=== PATIENT | female | born 1985 | race Caucasian/White ===

== ENCOUNTER → 2017-09-25 | Outpatient (CLI) | payer MEDICARE, OTHER ==
[2017-09-25 10:17] LABS: T4, Free (Free Thyroxine) 1.69 ng/dL (0.78-2.19)
== END | disposition home or self-care (01) ==
LOC: LABWHC1 08:55
PROVIDERS: ATTEND Internal Medicine Endocrinology, Diabetes & Metabolism
DX: E05.90 Thyrotoxicosis, unspecified without thyrotoxic crisis or storm (principal)
CPT/HCPCS: 36415; 84439; 84443; 84480

== ENCOUNTER 2024-10-12 16:35 | Inpatient (IN) | payer MEDICARE, OTHER ==
[2024-10-12] MEDS: ZIPRASIDONE 20 MG VIAL IM STA (17:08)
--- NOTE | 2024-10-12 17:22 | ED ---
Altered Mental Status HPI - General Chief Complaint: Psychiatric Symptoms Stated Complaint: Mental Health Time Seen by Provider: 10/12/24 16:42 Source: patient, RN notes reviewed, old records reviewed Mode of arrival: EMS Limitations: no limitations - History of Present Illness Initial Comments: This is a 39-year-old female to the ER for evaluation patient presents today for significant altered mental status. Patient is rambling incoherently, flailing about at risk to herself and others. Currently spitting, fighting, monitoring incoherent words MD Complaint: altered mental status -: unknown Severity: severe Consistency of Symptoms: constant Associated Symptoms: denies other symptoms - Related Data Home Medications Medication Instructions Recorded Confirmed Tirzepatide [Zepbound] 7.5 mg SQ FR 10/12/24 10/12/24 methIMAzole 5 mg PO DAILY 10/12/24 10/12/24 methIMAzole 10 mg PO Q48H 10/12/24 10/12/24 Previous Rx's Medication Instructions Recorded Aspirin 81 mg PO DAILY #30 tab 10/16/24 Atorvastatin [Lipitor] 20 mg PO DAILY #30 tablet 10/16/24 Losartan [Cozaar] 25 mg PO DAILY #30 tab 10/16/24 Metoprolol Tartrate [Lopressor] 50 mg PO BID #60 tab 10/16/24 Allergies Allergy/AdvReac Type Severity Reaction Status Date / Time No Known Allergies Allergy Verified 10/12/24 18:52 Review of Systems ROS Statement: Those systems with pertinent positive or pertinent negative responses have been documented in the HPI. ROS Other: All systems not noted in ROS Statement are negative. Past Medical History Past Drug Use History: Marijuana General Exam Limitations: altered mental status, physical limitation General appearance: appears intoxicated, anxious, in distress Head exam: Present: atraumatic, normocephalic, normal inspection Eye exam: Present: normal appearance, PERRL, EOMI. Absent: scleral icterus, conjunctival injection, periorbital swelling ENT exam: Present: normal exam, mucous membranes moist Neck exam: Present: normal inspection. Absent: tenderness, meningismus, lymphadenopathy Respiratory exam: Present: normal lung sounds bilaterally. Absent: respiratory distress, wheezes, rales, rhonchi, stridor Cardiovascular Exam: Present: regular rate, normal rhythm, normal heart sounds. Absent: systolic murmur, diastolic murmur, rubs, gallop, clicks GI/Abdominal exam: Present: soft, normal bowel sounds. Absent: distended, tenderness, guarding, rebound, rigid Extremities exam: Present: normal inspection, full ROM, normal capillary refill. Absent: tenderness, pedal edema, joint swelling, calf tenderness Back exam: Present: normal inspection Neurological exam: Present: alert, oriented X3, CN II-XII intact Psychiatric exam: Present: normal affect, normal mood Skin exam: Present: warm, dry, intact, normal color. Absent: rash Course Vital Signs 10/12/24 10/12/24 10/12/24 16:44 17:10 18:44 Temperature 98.7 F Pulse Rate 130 H Respiratory 26 H 20 18 Rate Blood Pressure 131/78 O2 Sat by Pulse 96 Oximetry 10/12/24 10/13/24 10/13/24 23:38 02:49 05:00 Temperature Pulse Rate 115 H 109 H 109 H Respiratory 17 17 17 Rate Blood Pressure 140/106 147/101 142/98 O2 Sat by Pulse 100 99 99 Oximetry 10/13/24 10/13/24 10/13/24 08:10 10:00 11:00 Temperature 98.7 F Pulse Rate 107 H 99 103 H Respiratory 18 18 18 Rate Blood Pressure 118/76 119/75 136/95 O2 Sat by Pulse 96 97 94 L Oximetry 10/13/24 12:20 Temperature Pulse Rate 103 H Respiratory 16 Rate Blood Pressure 118/81 O2 Sat by Pulse 98 Oximetry - Reevaluation(s) Reevaluation #1: 10/12/24 17:22 Medical records reviewed Reevaluation #2: 10/12/24 22:32 Patient never complains of chest pain throughout ER and stay reevaluation still without chest pain Increasing troponin patient giving aspirin Heart rate continues to improve here in the ER Reevaluation #3: 10/12/24 22:32 Patient informed of results Patient will need psychiatric evaluation Reevaluation #4: Was pt. sent in by a medical professional or institution (, PA, PIE ICER MACHINE, urgent care, hospital, or alf...) When possible be specific @ -no Did you speak to anyone other than the patient for history (EMS, parent, family, police, friend...)? What history was obtained from this source @ -no Did you review nursing and triage notes (agree or disagree)? Why? @ -agree Are old charts reviewed (outside hosp., previous admission, EMS record, old EKG, old radiological studies, urgent care reports/EKG's, alf records)? Report findings @ -yes Differential Diagnosis (chest pain, altered mental status, abdominal pain women, abdominal pain men, vaginal bleeding, weakness, fever, dyspnea, syncope, heada faviola, dizziness, GI bleed, back pain, seizure, CVA, palpatations, mental health, musculoskeletal)? @ -prior EKG interpreted by me (3pts min.). @ -yes X-rays interpreted by me (1pt min.). @ -yes negative for acute disease CT interpreted by me (1pt min.). @ -Yes negative for acute disease U/S interpreted by me (1pt. min.). @ -no What testing was considered but not performed or refused? (CT, X-rays, U/S, labs)? Why? @ -none What meds were considered but not given or refused? Why? @ -none Did you discuss the management of the patient with other professionals (professionals i.e. , PA, PIE ICER MACHINE, lab, RT, psych nurse, social sciences research scientist, sterile products processor, teacher, forest fire control officer, family caseworker)? Give summary @ -no Was smoking cessation discussed for >3mins.? @ -no Was critical care preformed (if so, how long)? @ -no Were there social determinants of health that impacted care today? How? (Homelessness, low income, unemployed, alcoholism, drug addiction, transportation, low edu. Level, literacy, decrease access to med. care, residential, rehab)? @ -none Was there de-escalation of care discussed even if they declined (Discuss DNR or withdrawal of care, Hospice)? DNR status @ -no What co-morbidities impacted this encounter? (DM, HTN, Smoking, COPD, CAD, Cancer, CVA, ARF, Chemo, Hep., AIDS, mental health diagnosis, sleep apnea, morbid obesity)? @ -none Was patient admitted / discharged? Hospital course, mention meds given and route, prescriptions, significant lab abnormalities, going to OR and other pertinent info. @ - 39 female was admitted for psychiatric admission acute psychosis altered mental status need for sedation combativeness, patient also has unknown cause of elevated troponin will have cardiology evaluation Admitted Undiagnosed new problem with uncertain prognosis? @ -no Drug Therapy requiring intensive monitoring for toxicity (Heparin, Nitro, Insulin, Cardizem)? @ -no Were any procedures done? @ -no Diagnosis/symptom? @ -Psychosis Acute, or Chronic, or Acute on Chronic? @ -Acute Uncomplicated (without systemic symptoms) or Complicated (systemic symptoms)? @ -Complicated Side effects of treatment? @ -no Exacerbation, Progression, or Severe Exacerbation? @ -exacerbation Poses a threat to life or bodily function? How? (Chest pain, [place], [place], pneumonia, PE, COPD, DKA, ARF, appy, cholecystitis, CVA, Diverticulitis, Homicidal, Suicidal, threat to staff... and all critical care pts) @ -yes altered mental status acute troponin elevation Reevaluation #5: Differential Altered Mental Status: Hypoglycemia, DKA, hypercapnia, ETOH, overdose, CO poisoning, trauma, myxedema coma, HTN encephalopathy, infection, encephalitis, psychosis, intercranial hemorrhage, hepatic encephalopathy, meningitis, CVA, this is not meant to be an all-inclusive list Differential Mental Health Depression, anxiety, bipolar, psychosis, schizophrenia, borderline personality, situational depression, adjustment disorder, behavioral disorder, brain tumor, malingering, substance abuse, encephalopathy, medication reaction, dementia, hypothyroidism, degenerative neurologic disorder, lupus.... This is not meant to be all-inclusive list - Consultations Consultation #1: Spoke with sound who agrees to admit this patient Medical Decision Making - Medical Decision Making 39 female was admitted for psychiatric admission acute psychosis altered mental status need for sedation combativeness, patient also has unknown cause of elevated troponin will have cardiology evaluation - Lab Data Result diagrams: 10/16/24 08:42 10/16/24 08:42 Lab Results 10/12/24 10/12/24 10/12/24 Range/Units 18:17 18:17 18:17 WBC 14.6 H (3.8-10.6) k/uL RBC 4.53 (3.80-5.40) m/uL Hgb 12.1 (11.4-16.0) gm/dL Hct 37.5 (34.0-46.0) % MCV 82.8 (80.0-100.0) fL MCH 26.7 (25.0-35.0) pg MCHC 32.2 (31.0-37.0) g/dL RDW 15.1 (11.5-15.5) % Plt Count 380 (150-450) k/uL MPV 7.0 Neutrophils % 91 % Lymphocytes % 6 % Monocytes % 3 % Eosinophils % 0 % Basophils % 0 % Neutrophils # 13.3 H (1.3-7.7) k/uL Lymphocytes # 0.8 L (1.0-4.8) k/uL Monocytes # 0.4 (0-1.0) k/uL Eosinophils # 0.0 (0-0.7) k/uL Basophils # 0.0 (0-0.2) k/uL PT 11.3 (10.0-12.5) sec INR 1.0 (<1.2) Sodium 137 (137-145) mmol/L Potassium 3.4 L (3.5-5.1) mmol/L Chloride 102 (98-107) mmol/L Carbon Dioxide 21 L (22-30) mmol/L Anion Gap 14 mmol/L BUN 9 (7-17) mg/dL Creatinine 0.80 (0.52-1.04) mg/dL Est GFR (CKD-EPI)AfAm >90 (>60 ml/min/1.73 sqM) Est GFR (CKD-EPI)NonAf >90 (>60 ml/min/1.73 sqM) Glucose 105 H (74-99) mg/dL Lactic Ac Sepsis Rflx Plasma Lactic Acid Adalid (0.7-2.0) mmol/L Calcium 9.1 (8.4-10.2) mg/dL Phosphorus 2.8 (2.5-4.5) mg/dL Magnesium 2.1 (1.6-2.3) mg/dL Total Bilirubin 0.3 (0.2-1.3) mg/dL AST 27 (14-36) U/L ALT 25 (4-34) U/L Alkaline Phosphatase 52 (38-126) U/L Creatine Kinase 247 H (30-135) U/L Troponin I (0.000-0.034) ng/mL Total Protein 7.5 (6.3-8.2) g/dL Albumin 4.0 (3.5-5.0) g/dL Lipase 63 (23-300) U/L TSH 0.020 L (0.465-4.680) mIU/L Free T4 1.17 (0.78-2.19) ng/dL Salicylates <1.0 mg/dL Urine Opiates Screen (NotDetected) Ur Oxycodone Screen (NotDetected) Urine Methadone Screen (NotDetected) Acetaminophen <10.0 ug/mL Ur Barbiturates Screen (NotDetected) U Tricyclic Antidepress (NotDetected) Ur Phencyclidine Scrn (NotDetected) Ur Amphetamines Screen (NotDetected) U Methamphetamines Scrn (NotDetected) U Benzodiazepines Scrn (NotDetected) [place] <0.2 mmol/L Urine Cocaine Screen (NotDetected) U Marijuana (THC) Screen (NotDetected) Serum Alcohol <10 mg/dL 10/12/24 10/12/24 10/12/24 Range/Units 18:17 18:24 18:54 WBC (3.8-10.6) k/uL RBC (3.80-5.40) m/uL Hgb (11.4-16.0) gm/dL Hct (34.0-46.0) % MCV (80.0-100.0) fL MCH (25.0-35.0) pg MCHC (31.0-37.0) g/dL RDW (11.5-15.5) % Plt Count (150-450) k/uL MPV Neutrophils % % Lymphocytes % % Monocytes % % Eosinophils % % Basophils % % Neutrophils # (1.3-7.7) k/uL Lymphocytes # (1.0-4.8) k/uL Monocytes # (0-1.0) k/uL Eosinophils # (0-0.7) k/uL Basophils # (0-0.2) k/uL PT (10.0-12.5) sec INR (<1.2) Sodium (137-145) mmol/L Potassium (3.5-5.1) mmol/L Chloride (98-107) mmol/L Carbon Dioxide (22-30) mmol/L Anion Gap mmol/L BUN (7-17) mg/dL Creatinine (0.52-1.04) mg/dL Est GFR (CKD-EPI)AfAm (>60 ml/min/1.73 sqM) Est GFR (CKD-EPI)NonAf (>60 ml/min/1.73 sqM) Glucose (74-99) mg/dL Lactic Ac Sepsis Rflx Y Plasma Lactic Acid Adalid 4.3 H* (0.7-2.0) mmol/L Calcium (8.4-10.2) mg/dL Phosphorus (2.5-4.5) mg/dL Magnesium (1.6-2.3) mg/dL Total Bilirubin (0.2-1.3) mg/dL AST (14-36) U/L ALT (4-34) U/L Alkaline Phosphatase (38-126) U/L Creatine Kinase (30-135) U/L Troponin I 0.267 H* (0.000-0.034) ng/mL Total Protein (6.3-8.2) g/dL Albumin (3.5-5.0) g/dL Lipase (23-300) U/L TSH (0.465-4.680) mIU/L Free T4 (0.78-2.19) ng/dL Salicylates mg/dL Urine Opiates Screen (NotDetected) Ur Oxycodone Screen (NotDetected) Urine Methadone Screen (NotDetected) Acetaminophen ug/mL Ur Barbiturates Screen (NotDetected) U Tricyclic Antidepress (NotDetected) Ur Phencyclidine Scrn (NotDetected) Ur Amphetamines Screen (NotDetected) U Methamphetamines Scrn (NotDetected) U Benzodiazepines Scrn (NotDetected) [place] mmol/L Urine Cocaine Screen (NotDetected) U Marijuana (THC) Screen (NotDetected) Serum Alcohol mg/dL 10/12/24 Range/Units 19:37 WBC (3.8-10.6) k/uL RBC (3.80-5.40) m/uL Hgb (11.4-16.0) gm/dL Hct (34.0-46.0) % MCV (80.0-100.0) fL MCH (25.0-35.0) pg MCHC (31.0-37.0) g/dL RDW (11.5-15.5) % Plt Count (150-450) k/uL MPV Neutrophils % % Lymphocytes % % Monocytes % % Eosinophils % % Basophils % % Neutrophils # (1.3-7.7) k/uL Lymphocytes # (1.0-4.8) k/uL Monocytes # (0-1.0) k/uL Eosinophils # (0-0.7) k/uL Basophils # (0-0.2) k/uL PT (10.0-12.5) sec INR (<1.2) Sodium (137-145) mmol/L Potassium (3.5-5.1) mmol/L Chloride (98-107) mmol/L Carbon Dioxide (22-30) mmol/L Anion Gap mmol/L BUN (7-17) mg/dL Creatinine (0.52-1.04) mg/dL Est GFR (CKD-EPI)AfAm (>60 ml/min/1.73 sqM) Est GFR (CKD-EPI)NonAf (>60 ml/min/1.73 sqM) Glucose (74-99) mg/dL Lactic Ac Sepsis Rflx Plasma Lactic Acid Adalid (0.7-2.0) mmol/L Calcium (8.4-10.2) mg/dL Phosphorus (2.5-4.5) mg/dL Magnesium (1.6-2.3) mg/dL Total Bilirubin (0.2-1.3) mg/dL AST (14-36) U/L ALT (4-34) U/L Alkaline Phosphatase (38-126) U/L Creatine Kinase (30-135) U/L Troponin I (0.000-0.034) ng/mL Total Protein (6.3-8.2) g/dL Albumin (3.5-5.0) g/dL Lipase (23-300) U/L TSH (0.465-4.680) mIU/L Free T4 (0.78-2.19) ng/dL Salicylates mg/dL Urine Opiates Screen Not Detected (NotDetected) Ur Oxycodone Screen Not Detected (NotDetected) Urine Methadone Screen Not Detected (NotDetected) Acetaminophen ug/mL Ur Barbiturates Screen Not Detected (NotDetected) U Tricyclic Antidepress Not Detected (NotDetected) Ur Phencyclidine Scrn Not Detected (NotDetected) Ur Amphetamines Screen Not Detected (NotDetected) U Methamphetamines Scrn Not Detected (NotDetected) U Benzodiazepines Scrn Not Detected (NotDetected) [place] mmol/L Urine Cocaine Screen Not Detected (NotDetected) U Marijuana (THC) Screen Detected H (NotDetected) Serum Alcohol mg/dL - EKG Data -: EKG Interpreted by Me (EKG is sinus tachycardia 112 WI 152 QRS 87 QTc 400) - Radiology Data Radiology results: report reviewed (CT brain and chest x-ray is negative for acute disease), image reviewed Disposition Clinical Impression: Acute anxiety, Psychosis, Acute psychosis, AMS (altered mental status), Elevated troponin, Lactic acidosis Disposition: ADMITTED IP TO THIS HOSP Condition: Fair Is patient prescribed a controlled substance at d/c from ED?: No Time of Disposition: 20:20
[2024-10-12] MEDS: HALOPERIDOL LACTATE 5 MG/ML 1 ML VIAL IM STA (17:58)
[2024-10-12] MEDS: diphenhydrAMINE 50 MG/ML 1 ML VIAL IVP STA (18:25)
[2024-10-12] MEDS: SODIUM CHLORIDE 0.9% 1,000 ML IV STA (18:25)
[2024-10-12 18:26] LABS: Basophils % (A) 0 %; Eosinophils % (A) 0 %; HCT 37.5 % (34.0-46.0); HGB 12.1 gm/dL (11.4-16.0); Lymphocytes # (A) 0.8 k/uL (1.0-4.8); Lymphocytes % (A) 6 %; MCH 26.7 pg (25.0-35.0); MCHC 32.2 g/dL (31.0-37.0); MCV 82.8 fL (80.0-100.0); Monocytes # (A) 0.4 k/uL (0-1.0); Monocytes % (A) 3 %; Neutrophils # (A) 13.3 k/uL (1.3-7.7); Neutrophils % (A) 91 %; Platelet Count 380 k/uL (150-450); RBC 4.53 m/uL (3.80-5.40); RDW 15.1 % (11.5-15.5); WBC 14.6 k/uL (3.8-10.6)
[2024-10-12] MEDS: LORazepam 2 MG/ML INJ IV STA (18:26)
[2024-10-12 18:37] LABS: AST 27 U/L (14-36); Acetaminophen <10.0 ug/mL; African American GFR (CKD) >90 (>60 ml/min/1.73 sqM); Alcohol <10 mg/dL; Alkaline Phosphatase 52 U/L (38-126); Anion Gap 14 mmol/L; Blood Urea Nitrogen 9 mg/dL (7-17); Calcium 9.1 mg/dL (8.4-10.2); Carbon Dioxide 21 mmol/L (22-30); Chloride 102 mmol/L (98-107); Creatine Kinase 247 U/L (30-135); Glucose 105 mg/dL (74-99); Lipase 63 U/L (23-300); Lithium <0.2 mmol/L; Magnesium 2.1 mg/dL (1.6-2.3); Non-African American GFR(CKD) >90 (>60 ml/min/1.73 sqM); Phosphorus 2.8 mg/dL (2.5-4.5); Potassium 3.4 mmol/L (3.5-5.1); Salicylate <1.0 mg/dL; Sodium 137 mmol/L (137-145); Total Bilirubin 0.3 mg/dL (0.2-1.3); Total Protein 7.5 g/dL (6.3-8.2)
[2024-10-12 18:38] LABS: Prothrombin Time 11.3 sec (10.0-12.5)
[2024-10-12 18:53] LABS: ALT 25 U/L (4-34)
[2024-10-12] MEDS: SODIUM CHLORIDE 0.9% 1,000 ML IV SCH (19:28)
[2024-10-12 19:49] LABS: T4, Free (Free Thyroxine) 1.17 ng/dL (0.78-2.19)
--- NOTE | 2024-10-12 19:56 | XR ---
EXAMINATION TYPE: XR chest 1V DATE OF EXAM: 10/12/2024 7:53 PM COMPARISON: None. CLINICAL INDICATION: Female, 39 years old with history of ams, TECHNIQUE: Single frontal view of the chest is obtained. FINDINGS: There is no focal air space opacity, pleural effusion, or pneumothorax seen. The cardiac silhouette size is within normal limits. The osseous structures are intact. IMPRESSION: No acute process. [facility], , 10/12/2024 7:54 PM
--- NOTE | 2024-10-12 20:11 | CT ---
EXAMINATION TYPE: CT brain cspine wo con DATE OF EXAM: 10/12/2024 COMPARISON: None CLINICAL INDICATION: Female, 39 years old with history of ams; PHH, ams TECHNIQUE: CT scan of the head and cervical spine are performed without contrast. CT DLP: 2073.[address] CTDI: mGy Automated exposure control for dose reduction was used. FINDINGS: There is no acute intracranial hemorrhage, mass effect, or midline shift identified. The ventricles and sulci are within normal limits in size. The globes are intact and the visualized sinuses are jose ar. Cervical spine is visualized in its entirety from C1 through upper thoracic levels and demonstrates s atisfactory alignment without evidence of acute fracture or dislocation. Prevertebral soft tissue ap pears within normal limits. The C1-C2 articulation is unremarkable. IMPRESSION: 1. There is no acute fracture or dislocation evident in the cervical spine. 2. No acute intracranial hemorrhage, mass effect, or midline shift is seen. [facility], , 10/12/2024 8:09 PM
[2024-10-12] MEDS ORDERED: NALOXONE 0.4 MG/ML 1 ML VIAL IV PRN (20:15)
[2024-10-12] MEDS ORDERED: MORPHINE SULFATE 4 MG/ML SYRINGE IV PRN (20:15)
[2024-10-12 20:32] LABS: Amphetamine Screen,Urine Not Detected (NotDetected); Barbiturate Screen,Urine Not Detected (NotDetected); Benzodiazepines Screen,Urine Not Detected (NotDetected); Cocaine Screen,Urine Not Detected (NotDetected); Methadone Screen, Urine Not Detected (NotDetected); Opiate Screen,Urine Not Detected (NotDetected); Oxycodone Screen, Urine Not Detected (NotDetected); Phencyclidine Screen,Urine Not Detected (NotDetected); Tricyclic Antidepressant,Urine Not Detected (NotDetected); Urn Cannabinoid Scrn Detected (NotDetected)
[2024-10-12] MEDS: ASPIRIN 81 MG PO STA (22:09)
[2024-10-12] MEDS: ASPIRIN 300 MG SUPP RECTAL STA (22:10)
[2024-10-13] MEDS: HEPARIN SOD,PORK IN 0.45% NACL 25,000 UNIT in 0.45% NACL 1 250ML.BAG IV SCH (00:41)
[2024-10-13] MEDS: HEPARIN SODIUM 1,000 UN/ML (10ML VL) IV ONE (00:42)
[2024-10-13 01:19] LABS: INR 1.1 (<1.2); Partial Thromboplastin Time 54.5 sec (22.0-30.0); Prothrombin Time 11.6 sec (10.0-12.5)
[2024-10-13 01:25] LABS: Basophils % (A) 0 %; Eosinophils % (A) 0 %; HCT 36.8 % (34.0-46.0); HGB 11.7 gm/dL (11.4-16.0); Lymphocytes # (A) 1.8 k/uL (1.0-4.8); Lymphocytes % (A) 14 %; MCH 27.2 pg (25.0-35.0); MCHC 31.9 g/dL (31.0-37.0); MCV 85.2 fL (80.0-100.0); Mean Platelet Volume 7.3; Monocytes # (A) 0.5 k/uL (0-1.0); Monocytes % (A) 4 %; Neutrophils # (A) 9.9 k/uL (1.3-7.7); Neutrophils % (A) 81 %; Platelet Count 357 k/uL (150-450); RBC 4.31 m/uL (3.80-5.40); RDW 15.3 % (11.5-15.5); WBC 12.3 k/uL (3.8-10.6)
[2024-10-13] MEDS: ONDANSETRON 4 MG/2 ML VIAL IVP PRN (04:09)
--- NOTE | 2024-10-13 05:54 | P.HPIM ---
History of Present Illness H&P Date: 10/13/24 Patient is a 39-year-old female who was brought into the emergency room for erratic behavior. The patient had reportedly taken THC edibles and was acting very aggressively and erratically at all staff. She was subsequently seen in the emergency room and reported feeling better from the time of arrival. She reports that she may have gotten a substance laced with something from a friend which were THC edibles. She did reported ongoing nausea at the time of interview and had an episode of vomiting but denied any additional complaints. She denied experiencing chest discomfort, shortness breath, fever, chills, cough, abdominal pain, diarrhea. Head/cervical spine CT in the emergency room was unremarkable. EKG revealed sinus tachycardia at [address]/T wave changes noted as reviewed by me. Chest x-ray was unremarkable. Laboratory evaluation revealed a troponin of 0.267 -> 0.567 -> 0.740, with WBC count 12.3 and urine toxicology positive for marijuana. Lactic acid was 4.3 and potassium 3.4. ED documentation reviewed and case discussed with ED provider. Review of systems: Pertinent positives and negatives as discussed in HPI, a complete review of systems was performed and all other systems are negative. Physical examination: Vital signs reviewed General: non toxic, no distress, appears at stated age, morbidly obese Derm: no unusual rashes/lesions, warm Head: atraumatic, normocephalic, symmetric Eyes: EOMI, no lid lag, anicteric sclera, pupils equal round reactive to light ENT: Nose and ears atraumatic Neck: No cervical lymphadenopathy, trachea midline, supple Mouth: no lip lesion, mucus membranes moist Cardiovascular: S1S2 reg, no murmur, positive dorsalis pedis pulse bilateral, no edema Lungs: CTA bilateral, no rhonchi, no rales, no accessory muscle use Abdominal: soft, nontender to palpation, no guarding Ext: muscle strength 5 out of 5 in all 4 extremities grossly, no gross muscle atrophy, no contractures, Neuro: CN II-XI grossly intact, no gross focal neuro deficits Psych: Alert, oriented, appropriate affect Assessment: Elevated troponin, rule out NSTEMI Erratic behavior, now resolved, likely due to substance abuse Lactic acidosis Hypokalemia Leukocytosis, likely secondary to acute stressor with no signs of active infection at this time Imaging: Head/cervical spine CT in the emergency room was unremarkable. EKG revealed sinus tachycardia at [address]/T wave changes noted as reviewed by me. Chest x-ray was unremarkable. Data Review: Laboratory evaluation revealed a troponin of 0.267 -> 0.567 -> 0.740, with WBC count 12.3 and urine toxicology positive for marijuana. Lactic acid was 4.3 and potassium 3.4. Plan: Initiated heparin infusion Continue with aspirin Cardiology consulted Trend troponin Cardiac monitoring Monitor lactic acid levels for resolution Replace potassium DVT prophylaxis: Heparin infusion The patient is admitted with an anticipated less than 2 midnight stay for evaluation of elevated troponin CODE STATUS: Full Code Discussed with: Patient Anticipated discharge place: Home Past Medical History Past Drug Use History: Marijuana Medications and Allergies Home Medications Medication Instructions Recorded Confirmed Type Tirzepatide [Zepbound] 7.5 mg SQ FR 10/12/24 10/12/24 History methIMAzole 5 mg PO DAILY 10/12/24 10/12/24 History methIMAzole 10 mg PO Q48H 10/12/24 10/12/24 History Allergies Allergy/AdvReac Type Severity Reaction Status Date / Time No Known Allergies Allergy Verified 10/12/24 18:52 Physical Exam Vitals: Vital Signs Temp Pulse Resp BP Pulse Ox 10/13/24 02:49 109 H 17 147/101 99 10/12/24 23:38 115 H 17 140/106 100 10/12/24 18:44 98.7 F 130 H 18 131/78 96 10/12/24 17:10 20 10/12/24 16:44 26 H Intake and Output 10/12/24 10/12/24 10/13/24 14:59 22:59 06:59 Other: Weight 124.738 kg Results CBC & Chem 7: 10/13/24 00:47 10/12/24 18:17 Labs: Abnormal Lab Results - Last 24 Hours (Table) 10/12/24 10/12/24 10/12/24 Range/Units 18:17 18:17 18:17 WBC 14.6 H (3.8-10.6) k/uL Neutrophils # 13.3 H (1.3-7.7) k/uL Lymphocytes # 0.8 L (1.0-4.8) k/uL APTT (22.0-30.0) sec Potassium 3.4 L (3.5-5.1) mmol/L Carbon Dioxide 21 L (22-30) mmol/L Glucose 105 H (74-99) mg/dL Plasma Lactic Acid Adalid (0.7-2.0) mmol/L Creatine Kinase 247 H (30-135) U/L Troponin I 0.267 H* (0.000-0.034) ng/mL TSH 0.020 L (0.465-4.680) mIU/L U Marijuana (THC) Screen (NotDetected) 10/12/24 10/12/24 10/12/24 Range/Units 18:24 19:37 21:05 WBC (3.8-10.6) k/uL Neutrophils # (1.3-7.7) k/uL Lymphocytes # (1.0-4.8) k/uL APTT (22.0-30.0) sec Potassium (3.5-5.1) mmol/L Carbon Dioxide (22-30) mmol/L Glucose (74-99) mg/dL Plasma Lactic Acid Adalid 4.3 H* (0.7-2.0) mmol/L Creatine Kinase (30-135) U/L Troponin I 0.567 H* (0.000-0.034) ng/mL TSH (0.465-4.680) mIU/L U Marijuana (THC) Screen Detected H (NotDetected) 10/12/24 10/13/24 10/13/24 Range/Units 21:05 00:24 00:47 WBC 12.3 H (3.8-10.6) k/uL Neutrophils # 9.9 H (1.3-7.7) k/uL Lymphocytes # (1.0-4.8) k/uL APTT (22.0-30.0) sec Potassium (3.5-5.1) mmol/L Carbon Dioxide (22-30) mmol/L Glucose (74-99) mg/dL Plasma Lactic Acid Adalid 2.1 H* (0.7-2.0) mmol/L Creatine Kinase (30-135) U/L Troponin I 0.740 H* (0.000-0.034) ng/mL TSH (0.465-4.680) mIU/L U Marijuana (THC) Screen (NotDetected) 10/13/24 Range/Units 00:47 WBC (3.8-10.6) k/uL Neutrophils # (1.3-7.7) k/uL Lymphocytes # (1.0-4.8) k/uL APTT 54.5 H (22.0-30.0) sec Potassium (3.5-5.1) mmol/L Carbon Dioxide (22-30) mmol/L Glucose (74-99) mg/dL Plasma Lactic Acid Adalid (0.7-2.0) mmol/L Creatine Kinase (30-135) U/L Troponin I (0.000-0.034) ng/mL TSH (0.465-4.680) mIU/L U Marijuana (THC) Screen (NotDetected)
[2024-10-13 07:43] LABS: Basophils % (A) 0 %; Eosinophils % (A) 0 %; HCT 39.8 % (34.0-46.0); HGB 12.8 gm/dL (11.4-16.0); Lymphocytes # (A) 0.8 k/uL (1.0-4.8); Lymphocytes % (A) 5 %; MCH 26.9 pg (25.0-35.0); MCHC 32.2 g/dL (31.0-37.0); MCV 83.4 fL (80.0-100.0); Mean Platelet Volume 7.2; Monocytes # (A) 0.5 k/uL (0-1.0); Monocytes % (A) 3 %; Neutrophils # (A) 13.3 k/uL (1.3-7.7); Neutrophils % (A) 91 %; Platelet Count 406 k/uL (150-450); RBC 4.77 m/uL (3.80-5.40); RDW 15.3 % (11.5-15.5); WBC 14.6 k/uL (3.8-10.6)
[2024-10-13 07:57] LABS: ALT 17 U/L (4-34); AST 30 U/L (14-36); African American GFR (CKD) >90 (>60 ml/min/1.73 sqM); Albumin 3.5 g/dL (3.5-5.0); Alkaline Phosphatase 56 U/L (38-126); Anion Gap 9 mmol/L; Blood Urea Nitrogen 7 mg/dL (7-17); Calcium 8.5 mg/dL (8.4-10.2); Carbon Dioxide 20 mmol/L (22-30); Chloride 111 mmol/L (98-107); Glucose 118 mg/dL (74-99); Magnesium 2.1 mg/dL (1.6-2.3); Non-African American GFR(CKD) >90 (>60 ml/min/1.73 sqM); Phosphorus 3.1 mg/dL (2.5-4.5); Potassium 3.7 mmol/L (3.5-5.1); Sodium 140 mmol/L (137-145); Total Bilirubin 0.4 mg/dL (0.2-1.3)
[2024-10-13] MEDS: HEPARIN SODIUM 1,000 UN/ML (10ML VL) IV PRN (08:16)
[2024-10-13] MEDS: PANTOPRAZOLE 40 MG/10 ML VIAL IV SCH (08:40)
--- NOTE | 2024-10-13 09:18 | P.CRDCN ---
History of Present Illness Consult date: 10/13/24 History of present illness: The patient is a pleasant 39-year-old female patient with a past medical history significant for thyroid disease and obesity and also history of marijuana use presented to the emergency department or was brought to the emergency department for erratic behavior. For some reasons troponin was checked and came to be abnormal and seems to be concerning and for that reason we consulted to see the patient. The EKG showed sinus mechanism with sinus tachycardia and no ischemic ST or T wave abnormalities. No symptoms of chest pain or chest discomfort but the patient somewhat is poor historian. No history of CAD or heart failure or cardiac arrhythmia. She is overweight. She was found to have mildly elevated lactic acid. Her WBC also was slightly elevated. She used marijuana yesterday. No other drugs according to her have been used. The physical examination is remarkable for regular rhythm with a clear breathing sounds bilaterally and no edema was noted in the lower extremities Assessment Evidence of myocardial injury with no evidence of ischemia as of now History of marijuana use Mild sinus tachycardia Obesity Plan Continue the heparin for a total of 48 hours Add aspirin to the current medical regimen Add beta-sean with metoprolol to tartrate Follow-up with the next third cardiac enzymes Obtain an echo for more risk stratification and rule out wall motion abnormalities Further recommendation to follow Past Medical History Past Drug Use History: Marijuana Medications and Allergies Home Medications Medication Instructions Recorded Confirmed Type Tirzepatide [Zepbound] 7.5 mg SQ FR 10/12/24 10/12/24 History methIMAzole 5 mg PO DAILY 10/12/24 10/12/24 History methIMAzole 10 mg PO Q48H 10/12/24 10/12/24 History Allergies Allergy/AdvReac Type Severity Reaction Status Date / Time No Known Allergies Allergy Verified 10/12/24 18:52 Physical Exam Vitals: Vital Signs Temp Pulse Resp BP Pulse Ox 10/13/24 08:10 107 H 18 118/76 96 10/13/24 05:00 109 H 17 142/98 99 10/13/24 02:49 109 H 17 147/101 99 10/12/24 23:38 115 H 17 140/106 100 10/12/24 18:44 98.7 F 130 H 18 131/78 96 10/12/24 17:10 20 10/12/24 16:44 26 H Intake and Output 03/10/13/24 10/13/24 22:59 06:59 14:59 Intake Total 75.667 Balance 75.667 Intake: Intake, IV Titration 75.667 Amount Heparin Sod,Pork in 0.45% 75.667 NaCl 25,000 unit In 0.45 % NaCl 1 250ml.bag @ 8. 017 UNITS/KG/HR 10 mls/hr IV .Q24H [facility] Rx#: [id number] Other: Weight 124.738 kg Results 10/13/24 07:10 10/13/24 07:10 Cardiac Enzymes 10/12/24 10/12/24 10/12/24 Range/Units 18:17 18:17 21:05 AST 27 (14-36) U/L Troponin I 0.267 H* 0.567 H* (0.000-0.034) ng/mL 10/13/24 10/13/24 Range/Units 00:24 07:10 AST 30 (14-36) U/L Troponin I 0.740 H* (0.000-0.034) ng/mL Coagulation 10/12/24 10/13/24 10/13/24 Range/Units 18:17 00:47 07:10 PT 11.3 11.6 (10.0-12.5) sec APTT 54.5 H 31.8 H (22.0-30.0) sec CBC 10/12/24 10/13/24 10/13/24 Range/Units 18:17 00:47 07:10 WBC 14.6 H 12.3 H 14.6 H (3.8-10.6) k/uL RBC 4.53 4.31 4.77 (3.80-5.40) m/uL Hgb 12.1 11.7 12.8 (11.4-16.0) gm/dL Hct 37.5 36.8 39.8 (34.0-46.0) % Plt Count 380 357 406 (150-450) k/uL Comprehensive Metabolic Panel 10/12/24 10/13/24 Range/Units 18:17 07:10 Sodium 137 140 (137-145) mmol/L Potassium 3.4 L 3.7 (3.5-5.1) mmol/L Chloride 102 111 H (98-107) mmol/L Carbon Dioxide 21 L 20 L (22-30) mmol/L BUN 9 7 (7-17) mg/dL Creatinine 0.80 0.56 (0.52-1.04) mg/dL Glucose 105 H 118 H (74-99) mg/dL Calcium 9.1 8.5 (8.4-10.2) mg/dL AST 27 30 (14-36) U/L ALT 25 17 (4-34) U/L Alkaline Phosphatase 52 56 (38-126) U/L Total Protein 7.5 7.0 (6.3-8.2) g/dL Albumin 4.0 3.5 (3.5-5.0) g/dL Current Medications Generic Name Dose Route Start Last Admin Trade Name Freq PRN Reason Stop Dose Admin Heparin Sodium (Porcine) 0 unit 10/13/24 00:31 10/13/24 08:16 Heparin Sodium 1,000 Un/Ml (10ml Vl) IV 3,118.45 unit PER PROTOCOL PRN Administration Low PTT Protocol Heparin Sodium/Sodium Chloride 250 mls @ 10 mls/hr 10/13/24 00:45 10/13/24 08:15 25,000 unit/ Sodium Chloride IV 10.017 units/kg/hr .Q24H XI 12.495 mls/hr Titration Protocol 8.017 UNITS/KG/HR Morphine Sulfate 4 mg 10/12/24 20:15 Morphine Sulfate 4 Mg/Ml Syringe IV Q4HR PRN Severe Pain (Scale 7 to 10) Naloxone HCl 0.2 mg 10/12/24 20:15 Naloxone 0.4 Mg/Ml 1 Ml Vial IV Q2M PRN Opioid Reversal Ondansetron HCl 4 mg 10/12/24 20:15 10/13/24 04:09 Ondansetron 4 Mg/2 Ml Vial IVP 4 mg Q8HR PRN Administration Nausea And Vomiting Pantoprazole Sodium 40 mg 10/13/24 09:00 10/13/24 08:40 Pantoprazole 40 Mg/10 Ml Vial IV 40 mg DAILY XI Administration Intake and Output 10/12/24 10/13/24 10/13/24 22:59 06:59 14:59 Intake Total 75.667 Balance 75.667 Intake: Intake, IV Titration 75.667 Amount Heparin Sod,Pork in 0.45% 75.667 NaCl 25,000 unit In 0.45 % NaCl 1 250ml.bag @ 8. 017 UNITS/KG/HR 10 mls/hr IV .Q24H [facility], [facility] Rx#: [id number] Other: Weight 124.738 kg 10/13/24 07:10 10/13/24 07:10
--- NOTE | 2024-10-13 11:18 | XR ---
EXAMINATION TYPE: XR chest 2V DATE OF EXAM: 10/13/2024 10:54 AM COMPARISON: Chest radiographs from 10/12/2024. CLINICAL INDICATION: Female, 39 years old with history of elevated trop; [facility] TECHNIQUE: XR chest 2V Frontal and lateral views of the chest. FINDINGS: Lungs/Pleura: There is no evidence of pleural effusion, focal consolidation, or pneumothorax. Pulmonary vascularity: Pulmonary vascular congestion. Heart/mediastinum: Cardiac size is normal. Musculoskeletal: No acute osseous pathology. Other findings: Non IMPRESSION: Mild pulmonary vascular congestion suggested. [facility], , 10/13/2024 11:15 AM
[2024-10-13] MEDS ORDERED: OLANZapine 10 MG TAB PO PRN (14:19)
[2024-10-13] MEDS ORDERED: OLANZapine 10 MG VIAL IM PRN (14:19)
--- NOTE | 2024-10-13 14:24 | P.CN ---
Psychiatric Consult - . Consult date: 10/13/24 Consult:: 10/13/24 14:20 IDENTIFYING DATA: This patient is a 39-year-old female, living with family REASON FOR REFERRAL: Psychiatry was consulted for psychosis HISTORY OF PRESENT ILLNESS: The patient presented to the hospital with altered mental status. Patient required as needed Haldol and Benadryl for agitation with troponins being elevated with a cardiology consult placed. CT head was negative. UDS was not ordered. Patient seen and evaluated in her room however was unable to recall the previous days events. She mentioned her sister giving her 1 cannabis gummy to help with the stress she has been having given her father has been sick in the hospital and thus likely patient's symptoms were a sequela of this. This was strongly discouraged and patient was recommended to not take any drugs outside of her prescribed medications. She otherwise denied any past psych history other than a learning disability. At this time patient denies any suicidal or homicidal ideations, intent or plan. Patient denies any auditory, visual hallucinations and denies any paranoia or delusions. Patients admits to using a cannabis gummy provided by her sister but denied any other substances. PAST PSYCHIATRIC HISTORY: Patient has no past psych history. Patient denies being on any psychiatric medications. Patient denies any previous psychiatric hospitalizations. Patient denies any psychiatric outpatient follow-up. Patient denies any history of suicide attempts in the past. PAST MEDICAL HISTORY: Hypothyroidism. ALLERGIES: as per EMR. CHEMICAL DEPENDENCY HISTORY: as per HPI. FAMILY PSYCHIATRIC/SUBSTANCE USE HISTORY: Denies SOCIAL HISTORY: Patient did not complete high school due to learning disability she lives with her dad and sister. She is single and has no children. MENTAL STATUS EXAM: General Appearance: Patient appears to be stated age is alert, pleasant, and cooperative. Patient appears to have fair hygiene and grooming wearing hospital gown with fair eye contact. Behavior: Patient is calmly lying in bed without any agitated behavior. Speech: Patient's speech is fluent and nonpressured. Mood/Affect: Patient reports their mood is "tired", affect is congruent, constricted Suicidality/Homicidality: Patient denies having any suicidal or homicidal ideation intent or plan. Perceptions: Patient denies any visual hallucinations and denies any auditory hallucinations Though content/process: There is no evidence of any delusional thought content and thought process is linear and logical. Memory and concentration: AOX3, grossly intact for the purposes of this session. Can spell "WORLD" backwards Judgment and insight: Fair IMPRESSIONS: Substance-induced psychotic disorder History of learning disability PLAN: -At this time patient DOES NOT meet criteria for inpatient psychiatric admission. -Would recommend the following medication changes/additions: Start Zyprexa 10 mg p.o./IM as needed for acute safety concerns/agitation -Artificial [employer] Supervisor spoke with patient about substance abuse and the harmful effects on medical and mental health, patient verbally understood and agreed. -Psychiatry will sign off at this time -Please contact with any questions.
[2024-10-13] MEDS: ACETAMINOPHEN TAB 325 MG TAB PO PRN (18:13)
[2024-10-13] MEDS: METOPROLOL TARTRATE 12.5 MG TAB PO SCH (20:26)
[2024-10-13] MEDS: LORazepam 2 MG/ML INJ IV STA (22:45)
--- NOTE | 2024-10-14 07:47 | P.PN ---
Subjective Progress Note Date: 10/14/24 The patient is a pleasant 39-year-old female patient with a past medical history significant for thyroid disease and obesity and also history of marijuana use presented to the emergency department or was brought to the emergency department for erratic behavior. For some reasons troponin was checked and came to be abnormal and seems to be concerning and for that reason we consulted to see the patient. The EKG showed sinus mechanism with sinus tachycardia and no ischemic ST or T wave abnormalities. No symptoms of chest pain or chest discomfort but the patient somewhat is poor historian. No history of CAD or heart failure or cardiac arrhythmia. She is overweight. She was found to have mildly elevated lactic acid. Her WBC also was slightly elevated. She used marijuana yesterday. No other drugs according to her have been used. The physical examination is remarkable for regular rhythm with a clear breathing sounds bilaterally and no edema was noted in the lower extremities September [id number] The patient was seen and evaluated this morning. She is asymptomatic. The echo still pending. She is stable hemodynamically besides slight tachycardia and with that I am going to increase the dose of beta-sean. The physical examination is remarkable for regular rhythm with a soft systolic murmur and clear breathing sounds bilaterally and no edema was noted Assessment Evidence of myocardial injury with no evidence of ischemia as of now History of marijuana use Mild sinus tachycardia Obesity Plan Continue the current medical regimen Follow-up on the echocardiogram Increase the dose of beta-sean Consider coronary angiogram Objective - Vital Signs Vital signs: Vital Signs Temp 98.0 F 10/14/24 04:00 Pulse 113 H 10/14/24 04:00 Resp 18 10/14/24 04:00 BP 137/97 10/14/24 04:00 Pulse Ox 100 10/14/24 04:00 FiO2 Intake & Output 10/13/24 10/14/24 10/14/24 18:59 06:59 18:59 Intake Total 654.794 75.206 Output Total 2 Balance 654.794 73.206 Weight 124.738 kg 102.2 kg Intake: Intake, IV Titration 174.794 75.206 Amount Heparin Sod,Pork in 0.45% 174.794 75.206 NaCl 25,000 unit In 0.45 % NaCl 1 250ml.bag @ 8. 017 UNITS/KG/HR 10 mls/hr IV .Q24H [facility] Rx#: [id number] Oral 480 Output: Urine/Stool Mix 2 Other: Voiding Method Toilet Toilet # Voids 5 # Bowel Movements 2 - Labs CBC & Chem 7: 10/13/24 07:10 10/13/24 07:10 Labs: Abnormal Lab Results - Last 24 Hours (Table) 10/12/24 10/12/24 10/13/24 Range/Units 21:00 21:05 07:10 APTT (22.0-30.0) sec Chloride 111 H (98-107) mmol/L Carbon Dioxide 20 L (22-30) mmol/L Glucose 118 H (74-99) mg/dL Osmolality 306 H (275-295) mOsm/kg Troponin I (0.000-0.034) ng/mL Urine Osmolality 133 L (400-1100) mOsm/kg 10/13/24 10/13/24 10/13/24 Range/Units 10:45 14:44 22:12 APTT 31.6 H 42.3 H (22.0-30.0) sec Chloride (98-107) mmol/L Carbon Dioxide (22-30) mmol/L Glucose (74-99) mg/dL Osmolality (275-295) mOsm/kg Troponin I 0.641 H* (0.000-0.034) ng/mL Urine Osmolality (400-1100) mOsm/kg
[2024-10-14 08:12] LABS: Basophils % (A) 0 %; Eosinophils # (A) 0.1 k/uL (0-0.7); Eosinophils % (A) 1 %; HCT 39.8 % (34.0-46.0); HGB 12.6 gm/dL (11.4-16.0); Lymphocytes # (A) 1.5 k/uL (1.0-4.8); Lymphocytes % (A) 19 %; MCH 26.6 pg (25.0-35.0); MCHC 31.8 g/dL (31.0-37.0); MCV 83.8 fL (80.0-100.0); Mean Platelet Volume 7.1; Monocytes # (A) 0.4 k/uL (0-1.0); Monocytes % (A) 5 %; Neutrophils # (A) 6.2 k/uL (1.3-7.7); Neutrophils % (A) 75 %; Platelet Count 355 k/uL (150-450); RBC 4.74 m/uL (3.80-5.40); RDW 15.3 % (11.5-15.5); WBC 8.2 k/uL (3.8-10.6)
[2024-10-14 08:21] LABS: INR 0.9 (<1.2); Partial Thromboplastin Time 35.2 sec (22.0-30.0); Prothrombin Time 10.6 sec (10.0-12.5)
[2024-10-14 08:39] LABS: African American GFR (CKD) >90 (>60 ml/min/1.73 sqM); Anion Gap 9 mmol/L; Blood Urea Nitrogen 5 mg/dL (7-17); Calcium 8.7 mg/dL (8.4-10.2); Carbon Dioxide 23 mmol/L (22-30); Chloride 106 mmol/L (98-107); Glucose 112 mg/dL (74-99); Non-African American GFR(CKD) >90 (>60 ml/min/1.73 sqM); Potassium 3.5 mmol/L (3.5-5.1); Sodium 138 mmol/L (137-145)
[2024-10-14] MEDS: METOPROLOL TARTRATE 25 MG TAB PO SCH (09:00)
--- NOTE | 2024-10-14 11:02 | CA ---
Transthoracic Echo Report Name: Courtney Francis Age: 39 Gender: F : 1985 Exam Date: 10/14/2024 08:30 Exam Location: [place] [facility] Ht (in): 68 Wt (lb): 275 Ordering Physician: Js Rubin MD ([id number]) Attending/Referring Phys: Commercial Sewing Instructor Migdalia Jenkins RDCS Procedure CPT: Indications: ACS Cardiac Hx: Technical Quality: Fair Contrast 1: Total Dose (mL): Contrast 2: Total Dose (mL): MEASUREMENTS (Male / Female) Normal Values 2D ECHO LV Diastolic Diameter PLAX 4.2 cm 4.2 - 5.9 / 3.9 - 5.3 cm LV Systolic Diameter PLAX 3.0 cm IVS Diastolic Thickness 1.2 cm 0.6 - 1.0 / 0.6 - 0.9 cm LVPW Diastolic Thickness 1.1 cm 0.6 - 1.0 / 0.6 - 0.9 cm LV Relative Wall Thickness 0.6 LVOT Diameter 2.3 cm LV Diastolic Volume MOD BP 145.1 cm??? 67 - 155 / 56 - 104 cm??? LV Systolic Volume MOD BP 58.3 cm??? 22 - 58 / 19 - 49 cm??? LV Ejection Fraction MOD BP 59.8 % >= 55 % LV Cardiac Index MOD BP 3567.1 cm???/min???m??? LV Diastolic Volume MOD 4C 139.2 cm??? LV Systolic Volume MOD 4C 53.4 cm??? LV Ejection Fraction MOD 4C 61.7 % LV Cardiac Index MOD 4C 3525.3 cm???/min???m??? LV Diastolic Length 4C 8.2 cm LV Systolic Length 4C 6.5 cm LV Diastolic Volume MOD 2C 148.5 cm??? LV Systolic Volume MOD 2C 61.3 cm??? LV Ejection Fraction MOD 2C 58.7 % LV Cardiac Index MOD 2C 3581.7 cm???/min???m??? LV Diastolic Length 2C 8.3 cm LV Systolic Length 2C 6.2 cm LA Volume 57.3 cm??? 18 - 58 / 22 - 52 cm??? LA Volume Index 22.9 cm???/m??? 16 - 28 cm???/m??? DOPPLER AV Peak Velocity 132.8 cm/s AV Peak Gradient 7.1 mmHg AV Mean Velocity 82.9 cm/s AV Mean Gradient 3.3 mmHg AV Velocity Time Integral 21.5 cm LVOT Peak Velocity 107.3 cm/s LVOT Peak Gradient 4.6 mmHg LVOT Velocity Time Integral 18.7 cm LVOT Stroke Volume 76.2 cm??? LVOT Stroke Volume Index 32.5 ml/m??? LVOT Cardiac Index 3129.2 cm???/min???m??? AV Area Cont Eq vti 3.6 cm??? AV Area Cont Eq pk 3.3 cm??? MV Peak Velocity 146.0 cm/s MV Peak Gradient 8.5 mmHg MV Mean Velocity 99.7 cm/s MV Mean Gradient 4.3 mmHg MV Velocity Time Integral 27.7 cm MV Area PHT 5.6 cm??? MR Peak Velocity 568.6 cm/s MR Peak Gradient 129.3 mmHg MR Flow Rate PISA 154.5 cm???/s MR ERO PISA 0.3 cm??? MR Regurgitant Volume PISA 50.8 cm??? Mitral E Point Velocity 126.1 cm/s Mitral A Point Velocity 86.3 cm/s Mitral E to A Ratio 1.5 MV Deceleration Time 136.0 ms TR Peak Velocity 258.9 cm/s TR Peak Gradient 26.8 mmHg Right Atrial Pressure 5.0 mmHg Pulmonary Artery Systolic Pressu 31.8 mmHg Right Ventricular Systolic Press 31.8 mmHg PV Peak Velocity 96.8 cm/s PV Peak Gradient 3.8 mmHg FINDINGS Left Ventricle Left ventricular ejection fraction is estimated at 55-60 %. Mildly increased septal wall thickness. Mildly increased posterior wall thickness. Severely increased left ventricular diastolic volume. Mildly increased left ventricular systolic volume. No obvious regional wall motion abnormalities. Right Ventricle Normal right ventricular size and function. Right ventricular systolic pressure within normal limits. Right Atrium Normal right atrial size. Left Atrium Mildly increased left atrial volume. Mitral Valve Structurally normal mitral valve. Mild prolapse of posterior leaflet. Anterior leaflet override. Mild mitral stenosis. Severe mitral regurgitation. S Aortic Valve Trileaflet aortic valve. No aortic valve stenosis or regurgitation. Tricuspid Valve Structurally normal tricuspid valve. No tricuspid stenosis. Mild tricuspid regurgitation. Pulmonic Valve Structurally normal pulmonic valve. No pulmonic stenosis. Trace pulmonic regurgitation. Pericardium No pericardial effusion. Aorta Normal size aortic root and proximal ascending aorta. CONCLUSIONS Normal LV systolic function Prolapse of posterior mitral leaflet with severe anteriorly directed mitral regurgitation Consider transesophageal echo for better evaluation of the mitral valve anatomy Previewed by: Dr. Johnny Miranda MD (Electronically Signed) Final Date: 14 October 2024 11:01
--- NOTE | 2024-10-14 12:08 | P.PN ---
Subjective Progress Note Date: 10/14/24 39-year-old female who was brought into the emergency room for erratic behavior. The patient had reportedly taken THC edibles and was acting very aggressively and erratically at all staff. She was subsequently seen in the emergency room and reported feeling better from the time of arrival. She reports that she may have gotten a substance laced with something from a friend which were THC edibles. She did reported ongoing nausea at the time of interview and had an episode of vomiting but denied any additional complaints. She denied experiencing chest discomfort, shortness breath, fever, chills, cough, abdominal pain, diarrhea. Head/cervical spine CT in the emergency room was unremarkable. EKG revealed sinus tachycardia at [address]/T wave changes noted as reviewed by me. Chest x-ray was unremarkable. Laboratory evaluation revealed a troponin of 0.267 -> 0.567 -> 0.740, with WBC count 12.3 and urine toxicology positive for marijuana. Lactic acid was 4.3 and potassium 3.4. 10/14 - Patient seen and examined at bedside this morning. Cardiology had been consulted and evaluated the patient yesterday, recommending continuation of heparin for a total of 48 hours and the addition of aspirin as well as a beta- sean to her medical management regiment. A fourth troponin was drawn which was shown to be 0.641. Additionally, the recommendation for an echocardiogram to be completed urgently to help rule out any wall motion abnormalities and determine if cardiac catheterization will be required. Psychiatry was also consulted and evaluated the patient and recommended the patient does not meet criteria for inpatient psychiatric admissions and recommended the addition of Zyprexa 10 mg p.o./IM as needed for acute safety concerns/agitation. When seen and evaluated today, she reports feeling better that she has been. She has no acute complaints at this time. REVIEW OF SYSTEMS: Pertinent positives and negatives noted in HPI. Physical Exam: General: nontoxic, no distress, appears at stated age, morbidly obese Derm: warm, dry, intact Head: atraumatic, normocephalic, symmetric Eyes: EOMI, anicteric sclera Mouth: no lip lesion, mucus membranes moist Cardiovascular: S1 S2 reg, no murmur, rubs, or gallops Lungs: CTA bilateral, no rales, no accessory muscle use Abdominal: soft, non-tender to palpataion, no appreciable organomegaly Extremities: no gross muscle atrophy, no edema, no contractures Neuro: Alert, Oriented, CNII-XII grossly intact, gait normal Psych: well appearing, appropriate affect Data Received Today: Labs: WBCs 8.2, hemoglobin 12.6, hematocrit 39.9, platelet 355; sodium 138, potassium 3.5, BUN 5, creatinine 0.62, glucose 112, calcium 8.7, BNP 4060 Imagining: Echocardiogram read and reviewed, showed left ventricular EF 55 to 60%, with evidence of prolapse of the posterior mitral leaflet with severe anteriorly directed mitral regurgitation Assessment and plan 38-year-old female with PMH of thyroid disease and obesity presents to the emergency department due to erratic behavior. She had taken THC edibles for the first time and on arrival was acting aggressively and erratically towards all staff. She has since been feeling better, and has had no further episodes of aggression/agitation towards staff. 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 #Encephalopathy likely secondary to cannabinoid psychosis versus "[place] Cocaine" Consumption prior to arrival #Elevated Osmolar Gap -Toxicology report positive for only marijuana, otherwise unremarkable -Volatile screen ordered, currently pending -Psychiatry consulted -Per psychiatry's recommendation Zyprexa 10 mg IM/p.o. to be used as needed for acute safety concerns/agitation -Osmole gap shown to be elevated at 29 without the presence of an anion gap -Consider fomepizole if she had not been showing continued improvement in her mentation -Urine drug screen ordered, currently pending #Elevated troponin, possibly secondary to tachycardia v. volatile exposure v. Early onset HF, rule out NSTEMI #Severe Mitral Regurgitation with Mitral Prolapse of Posterior Valve, Anteriorly Directed Jet -Cardiac monitoring -Continue with heparin drip for total of 48 hours -Echocardiogram read and reviewed, showed left ventricular EF 55 to 60%, with evidence of prolapse of the posterior mitral leaflet with severe anteriorly directed mitral regurgitation -BNP 4060 -Troponin trend: 0.267 -> 0.56- -> 0.740 -> 0.641 -Cardiology consulted; SABINO +/- LHC +/- CT surgery consultation -Per cardiology recommendation, she will be initiated on aspirin 81 mg daily, Lipitor 20 mg daily, metoprolol 25 mg twice daily #Lactic acidosis, resolved -On admission 4.3, on repeat 10/09/2024 1.4 #Hypokalemia, resolved -On admission 3.4, BMP today 3.5 #Leukocytosis, likely secondary to acute stressor without evidence of infection, resolved -WBCs 14.6 on arrival, on CBC today 8.2 DVT ppx: Remains on heparin drip Code status: Full code F: None E: Replete as needed N: Regular diet A: Ambulatory Anticipated discharge place: Home Anticipated discharge time: 1-2 days Dictation was produced using [employer] dictation software. please excuse any grammatical, word or spelling errors. I saw and evaluated the patient during the roach and critical portions of this encounter, and discussed the case in detail with the resident author of this note, I agree with the Assessment and Plan, and my changes, if any, are highlighted in blue. Objective - Vital Signs Vital signs: Vital Signs Temp 98.0 F 10/14/24 04:00 Pulse 113 H 10/14/24 04:00 Resp 18 10/14/24 04:00 BP 137/97 10/14/24 04:00 Pulse Ox 100 10/14/24 04:00 FiO2 Intake & Output 10/13/24 10/14/24 10/14/24 18:59 06:59 18:59 Intake Total 654.794 75.206 Output Total 2 Balance 654.794 73.206 Weight 124.738 kg 102.2 kg Intake: Intake, IV Titration 174.794 75.206 Amount Heparin Sod,Pork in 0.45% 174.794 75.206 NaCl 25,000 unit In 0.45 % NaCl 1 250ml.bag @ 8. 017 UNITS/KG/HR 10 mls/hr IV .Q24H [facility] Rx#: [id number] Oral 480 Output: Urine/Stool Mix 2 Other: Voiding Method Toilet Toilet # Voids 5 # Bowel Movements 2 - Labs CBC & Chem 7: 10/14/24 07:50 10/14/24 07:50 Labs: Abnormal Lab Results - Last 24 Hours (Table) 10/12/24 10/12/24 10/13/24 Range/Units 21:00 21:05 07:10 WBC 14.6 H (3.8-10.6) k/uL Neutrophils # 13.3 H (1.3-7.7) k/uL Lymphocytes # 0.8 L (1.0-4.8) k/uL APTT (22.0-30.0) sec Chloride (98-107) mmol/L Carbon Dioxide (22-30) mmol/L Glucose (74-99) mg/dL Osmolality 306 H (275-295) mOsm/kg Troponin I (0.000-0.034) ng/mL Urine Osmolality 133 L (400-1100) mOsm/kg 10/13/24 10/13/24 10/13/24 Range/Units 07:10 07:10 10:45 WBC (3.8-10.6) k/uL Neutrophils # (1.3-7.7) k/uL Lymphocytes # (1.0-4.8) k/uL APTT 31.8 H (22.0-30.0) sec Chloride 111 H (98-107) mmol/L Carbon Dioxide 20 L (22-30) mmol/L Glucose 118 H (74-99) mg/dL Osmolality (275-295) mOsm/kg Troponin I 0.641 H* (0.000-0.034) ng/mL Urine Osmolality (400-1100) mOsm/kg 10/13/24 10/13/24 Range/Units 14:44 22:12 WBC (3.8-10.6) k/uL Neutrophils # (1.3-7.7) k/uL Lymphocytes # (1.0-4.8) k/uL APTT 31.6 H 42.3 H (22.0-30.0) sec Chloride (98-107) mmol/L Carbon Dioxide (22-30) mmol/L Glucose (74-99) mg/dL Osmolality (275-295) mOsm/kg Troponin I (0.000-0.034) ng/mL Urine Osmolality (400-1100) mOsm/kg
[2024-10-14] MEDS: ATORVASTATIN 20 MG TAB PO SCH (13:24)
[2024-10-14] MEDS: ASPIRIN 81 MG PO SCH (13:24)
[2024-10-14] MEDS: LOPERAMIDE 2 MG CAP PO PRN (13:24)
[2024-10-14 13:35] LABS: Ethanol Negative (Negative); Isopropanol Negative (Negative)
[2024-10-14 13:55] VITALS: BMI 34.2
[2024-10-14 14:09] LABS: Urn Cannabinoid Scrn Detected (NotDetected)
[2024-10-14 14:10] LABS: Amphetamine Screen,Urine Not Detected (NotDetected); Barbiturate Screen,Urine Not Detected (NotDetected); Benzodiazepines Screen,Urine Detected (NotDetected); Cocaine Screen,Urine Not Detected (NotDetected); Methadone Screen, Urine Not Detected (NotDetected); Opiate Screen,Urine Not Detected (NotDetected); Oxycodone Screen, Urine Not Detected (NotDetected); Phencyclidine Screen,Urine Not Detected (NotDetected); Tricyclic Antidepressant,Urine Not Detected (NotDetected)
[2024-10-14] MEDS ORDERED: NITROGLYCERIN SL TABS 0.4 MG TAB SUBLINGUAL PRN (14:12)
[2024-10-14] MEDS ORDERED: ALPRAZolam 0.5 MG TAB PO PRN (14:12)
[2024-10-14] MEDS ORDERED: ALPRAZolam 0.25 MG TAB PO PRN (14:12)
[2024-10-14] MEDS ORDERED: fentaNYL (PF) 50 MCG/ML 5 ML AMP IVP PRN (14:14)
[2024-10-14] MEDS ORDERED: MIDAZOLAM 2 MG/2 ML VIAL IV PRN (14:14)
[2024-10-14] MEDS: SODIUM CHLORIDE 0.9% 1,000 ML in EMPTY BAG 1 BAG IV SCH (23:44)
[2024-10-15] MEDS: BENZOCAINE SPRAY 1 EACH MM SCH (04:15)
[2024-10-15 04:32] LABS: Serum Amphetamine Negative; Serum Barbiturates Negative; Serum Benzodiazepine Negative; Serum Cocaine Negative; Serum Methadone Negative; Serum Opiates Negative; Serum Phencyclidine Negative; Serum Propoxyphene Negative; Serum THC (Cannabis) Positive
[2024-10-15 06:44] LABS: Basophils % (A) 0 %; Eosinophils % (A) 0 %; HCT 37.4 % (34.0-46.0); Hypochromasia Slight; Lymphocytes # (A) 1.9 k/uL (1.0-4.8); Lymphocytes % (A) 20 %; MCV 84.6 fL (80.0-100.0); Mean Platelet Volume 7.2; Monocytes # (A) 0.4 k/uL (0-1.0); Monocytes % (A) 4 %; Neutrophils # (A) 7.2 k/uL (1.3-7.7); Neutrophils % (A) 74 %; Platelet Count 332 k/uL (150-450); RBC 4.42 m/uL (3.80-5.40); RDW 15.3 % (11.5-15.5); WBC 9.7 k/uL (3.8-10.6)
[2024-10-15 07:14] LABS: African American GFR (CKD) >90 (>60 ml/min/1.73 sqM); Anion Gap 9 mmol/L; Blood Urea Nitrogen 6 mg/dL (7-17); Calcium 8.6 mg/dL (8.4-10.2); Carbon Dioxide 25 mmol/L (22-30); Chloride 106 mmol/L (98-107); Glucose 104 mg/dL (74-99); Non-African American GFR(CKD) >90 (>60 ml/min/1.73 sqM); Potassium 3.8 mmol/L (3.5-5.1); Sodium 140 mmol/L (137-145)
[2024-10-15] MEDS: ASPIRIN 325 MG TAB PO STA (07:54)
[2024-10-15] MEDS: ATORVASTATIN 80 MG TAB PO STA (07:54)
--- NOTE | 2024-10-15 09:42 | P.PN ---
Subjective Progress Note Date: 10/15/24 The patient is a pleasant 39-year-old female patient with a past medical history significant for thyroid disease and obesity and also history of marijuana use presented to the emergency department or was brought to the emergency department for erratic behavior. For some reasons troponin was checked and came to be abnormal and seems to be concerning and for that reason we consulted to see the patient. The EKG showed sinus mechanism with sinus tachycardia and no ischemic ST or T wave abnormalities. No symptoms of chest pain or chest discomfort but the patient somewhat is poor historian. No history of CAD or heart failure or cardiac arrhythmia. She is overweight. She was found to have mildly elevated lactic acid. Her WBC also was slightly elevated. She used marijuana yesterday. No other drugs according to her have been used. The physical examination is remarkable for regular rhythm with a clear breathing sounds bilaterally and no edema was noted in the lower extremities September [id number] The patient was seen and evaluated this morning. She is asymptomatic. The echo still pending. She is stable hemodynamically besides slight tachycardia and with that I am going to increase the dose of beta-sean. The physical examination is remarkable for regular rhythm with a soft systolic murmur and clear breathing sounds bilaterally and no edema was noted October 15, 2024 The patient was seen and evaluated this morning. She is feeling overall better. The pressure remains elevated and consistent with stage II hypertension and she still slightly tachycardic. I am going to increase the dose of beta-sean with metoprolol to tartrate to 50 mg p.o. twice daily. Continue the rest of the current medical regimen. The echo showed normal LV systolic function with severe MR and evidence of mitral valve prolapse. The patient need to undergo a SABINO and heart catheterization which probably can be right and left heart catheterization. The physical examination is remarkable for regular rhythm with a systolic murmur at the right and left upper sternal border and apical area with a clear breathing sounds bilaterally no edema was noted Assessment Evidence of myocardial injury with no evidence of ischemia as of now History of marijuana use Mild sinus tachycardia Severe mitral regurgitation Obesity Plan Continue the current medical regimen Increase the dose of beta-sean Proceed with a SABINO and right and left heart catheterization Objective - Vital Signs Vital signs: Vital Signs Temp 99.2 F 10/15/24 07:52 Pulse 93 10/15/24 07:52 Resp 16 10/15/24 07:52 BP 140/95 10/15/24 07:52 Pulse Ox 97 10/15/24 07:52 FiO2 Intake & Output 10/14/24 10/15/24 10/15/24 18:59 06:59 18:59 Intake Total 486.000 Balance 486.000 Weight 102.2 kg 101.3 kg Intake: Intake, IV Titration 250.000 Amount Heparin Sod,Pork in 0.45% 250.000 NaCl 25,000 unit In 0.45 % NaCl 1 250ml.bag @ 8. 017 UNITS/KG/HR 10 mls/hr IV .Q24H [facility] Rx#: [id number] Oral 236 Other: Voiding Method Toilet Toilet Toilet # Voids 3 3 # Bowel Movements 4 - Labs CBC & Chem 7: 10/15/24 06:01 10/15/24 06:01 Labs: Abnormal Lab Results - Last 24 Hours (Table) 10/14/24 10/14/24 10/15/24 Range/Units 13:32 17:06 06:01 APTT 42.7 H (22.0-30.0) sec BUN 6 L (7-17) mg/dL Glucose 104 H (74-99) mg/dL U Benzodiazepines Scrn Detected H (NotDetected) U Marijuana (THC) Screen Detected H (NotDetected) 10/15/24 Range/Units 06:01 APTT 41.2 H (22.0-30.0) sec BUN (7-17) mg/dL Glucose (74-99) mg/dL U Benzodiazepines Scrn (NotDetected) U Marijuana (THC) Screen (NotDetected)
[2024-10-15] MEDS: IV FLUID CONTINUATION 1,000 ML IV ONE ×2 (11:05)
[2024-10-15] MEDS: BENZOCAINE SPRAY 1 EACH MUCOUS MEM ONE (11:36)
[2024-10-15] MEDS: fentaNYL (PF) 50 MCG/ML 2 ML AMP IVP ONE (11:36)
[2024-10-15] MEDS: MIDAZOLAM 2 MG/2 ML VIAL IVP ONE ×2 (11:36→11:42)
[2024-10-15] MEDS: SODIUM CHLORIDE 0.9% 1,000 ML IV ONE (11:36)
--- NOTE | 2024-10-15 11:37 | P.PN ---
Subjective Progress Note Date: 10/15/24 39-year-old female who was brought into the emergency room for erratic behavior. The patient had reportedly taken THC edibles and was acting very aggressively and erratically at all staff. She was subsequently seen in the emergency room and reported feeling better from the time of arrival. She reports that she may have gotten a substance laced with something from a friend which were THC edibles. She did reported ongoing nausea at the time of interview and had an episode of vomiting but denied any additional complaints. She denied experiencing chest discomfort, shortness breath, fever, chills, cough, abdominal pain, diarrhea. Head/cervical spine CT in the emergency room was unremarkable. EKG revealed sinus tachycardia at [address]/T wave changes noted as reviewed by me. Chest x-ray was unremarkable. Laboratory evaluation revealed a troponin of 0.267 -> 0.567 -> 0.740, with WBC count 12.3 and urine toxicology positive for marijuana. Lactic acid was 4.3 and potassium 3.4. 10/14 - Patient seen and examined at bedside this morning. Cardiology had been consulted and evaluated the patient yesterday, recommending continuation of heparin for a total of 48 hours and the addition of aspirin as well as a beta- sean to her medical management regiment. A fourth troponin was drawn which was shown to be 0.641. Additionally, the recommendation for an echocardiogram to be completed urgently to help rule out any wall motion abnormalities and determine if cardiac catheterization will be required. Psychiatry was also consulted and evaluated the patient and recommended the patient does not meet criteria for inpatient psychiatric admissions and recommended the addition of Zyprexa 10 mg p.o./IM as needed for acute safety concerns/agitation. When seen and evaluated today, she reports feeling better that she has been. She has no acute complaints at this time. 10/15 - Patient seen and examined at bedside this morning. She is scheduled to undergo a SABINO later today. On her echocardiogram completed yesterday she was noted to have severe mitral regurgitation with mitral valve prolapse of the posterior valve with an anteriorly directed jet. Following SABINO today, possibili ty of left and right heart catheterization. She has no new complaints at this time. Per her nurse that yesterday evening, her legal guardian is admitted on 4S currently. He gave consent regarding SABINO/heart cath procedure, however noted that if the patient becomes confused and is unable to make decisions because he is in the hospital he gave permission for 2 other family members to make decisions for her. They are the only people allowed to provide consent for her. REVIEW OF SYSTEMS: Pertinent positives and negatives noted in HPI. Physical Exam: General: nontoxic, no distress, appears at stated age, morbidly obese Derm: warm, dry, intact Head: atraumatic, normocephalic, symmetric Eyes: EOMI, anicteric sclera Mouth: no lip lesion, mucus membranes moist Cardiovascular: S1 S2 reg, no murmur, rubs, or gallops Lungs: CTA bilateral, no rales, no accessory muscle use Abdominal: soft, non-tender to palpataion, no appreciable organomegaly Extremities: no gross muscle atrophy, no edema, no contractures Neuro: Alert, Oriented, CNII-XII grossly intact, gait normal Psych: well appearing, appropriate affect Data Received Today: Labs: WBCs 9.7, hemoglobin 12.0, hematocrit 37.4, platelet 332; APTT 41.2; sodium 140, potassium 3.8, BUN 6, creatinine 0.61, glucose 104, calcium 8.6 -Repeat urine toxicology screening positive for benzodiazepines and THC, otherwise unremarkable Imagining: No new imaging today Assessment and plan 38-year-old female with PMH of thyroid disease and obesity presents to the emergency department due to erratic behavior. She had taken THC edibles for the first time and on arrival was acting aggressively and erratically towards all staff. She has since been feeling better, and has had no further episodes of aggression/agitation towards staff. 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 "[place] Cocaine" consumption prior to arrival, improving #Elevated Osmolar Gap -Toxicology report positive for only marijuana, otherwise unremarkable -Volatile screen resulted, all negative -Psychiatry consulted -Per psychiatry's recommendation Zyprexa 10 mg IM/p.o. to be used as needed for acute safety concerns/agitation -Osmolar gap on arrival showed to be 22 (elevated) with the presence of an anion gap (14 on arrival) -Consider fomepizole if she had not been showing continued improvement in her mentation -Urine drug screen positive for benzodiazepines and THC #Elevated troponin, possibly secondary to tachycardia v. volatile exposure v. Early onset HF, rule out NSTEMI #Severe Mitral Regurgitation with Mitral Valve Prolapse of Posterior Valve, Anteriorly Directed Jet -Cardiac monitoring -Heparin drip discontinued as was given for more than 48 hours -BNP 4060 -Cardiology consulted; SABINO scheduled for later today +/- L+RHC +/- CT surgery consultation -Continue on aspirin 81 mg daily, Lipitor 20 mg daily -Per cardiology, increase dose of Metoprolol to 50 mg p.o. twice daily #Lactic acidosis, resolved -On admission 4.3, on repeat 10/09/2024 1.4 #Hypokalemia, resolved -On admission 3.4, BMP today 3.5 #Leukocytosis, likely secondary to acute stressor without evidence of infection, resolved -WBCs 14.6 on arrival, on CBC today 8.2 #Hyperthyroidism -Resume home methimazole 5 mg daily DVT ppx: 5000 units subcu heparin every 8 hours Code status: Full code F: None E: Replete as needed N: N.p.o. A: Ambulatory Anticipated discharge place: Home Anticipated discharge time: 1-2 days Dictation was produced using [employer] dictation software. please excuse any grammatical, word or spelling errors. I have seen and evaluated the patient today. Discussed with the resident and agree with the residents finding and plan as documented in the resident's note. Changes highlighted in blue font. Objective - Vital Signs Vital signs: Vital Signs Temp 97.8 F 10/15/24 03:15 Pulse 95 10/15/24 03:15 Resp 19 10/15/24 03:15 BP 145/90 10/15/24 03:15 Pulse Ox 93 L 10/15/24 03:15 FiO2 Intake & Output 10/14/24 10/15/24 10/15/24 18:59 06:59 18:59 Intake Total 486.000 Balance 486.000 Weight 102.2 kg 101.3 kg Intake: Intake, IV Titration 250.000 Amount Heparin Sod,Pork in 0.45% 250.000 NaCl 25,000 unit In 0.45 % NaCl 1 250ml.bag @ 8. 017 UNITS/KG/HR 10 mls/hr IV .Q24H XI Rx#: [id number] Oral 236 Other: Voiding Method Toilet Toilet # Voids 3 3 # Bowel Movements 4 - Labs CBC & Chem 7: 10/15/24 06:01 10/15/24 06:01 Labs: Abnormal Lab Results - Last 24 Hours (Table) 10/14/24 10/14/24 10/14/24 Range/Units 07:50 07:50 13:32 APTT 35.2 H (22.0-30.0) sec BUN 5 L (7-17) mg/dL Glucose 112 H (74-99) mg/dL U Benzodiazepines Scrn Detected H (NotDetected) U Marijuana (THC) Screen Detected H (NotDetected) 10/14/24 10/15/24 10/15/24 Range/Units 17:06 06:01 06:01 APTT 42.7 H 41.2 H (22.0-30.0) sec BUN 6 L (7-17) mg/dL Glucose 104 H (74-99) mg/dL U Benzodiazepines Scrn (NotDetected) U Marijuana (THC) Screen (NotDetected)
--- NOTE | 2024-10-15 11:51 | P.PCN ---
Date of Procedure: 10/15/24 Operative Findings: TRANSESOPHAGEAL ECHOCARDIOGRAM ELECTRONIC RESOURCES LIBRARIAN: SANTHOSH MURDOCK MD, RPVI INDICATION: Valvular heart disease SEDATION: Conscious sedation COMPLICATION: None LEVEL OF SEDATION Moderate with sedation length of 18 minutes PROCEDURE DESCRIPTION: After obtaining an informed consent, the patient was brought to transesophageal echocardiogram room. Pulse oximetry and heart monitors were attached to the patient. The patient throat was sprayed using lidocaine. The patient was turned into le ft lateral position. After that a bite guard was placed. After an appropriate conscious sedation was initiated, the transesophageal echocardiogram was advanced through a bite guard into the mid esophagus. A 2-D echocardiogram images, color Doppler images, continuous wave images, pulse-wave images, of various cardiac structure were performed. After that the transesophageal echocardiogram probe was advanced into the stomach and fixed to obtain transgastric view was. The probe was brought into the mid esophagus. Inter-atrial septum was interrogated using 2D images, color Doppler images, and then contrast study. After that transesophageal echocardiogram was withdrawn out and upon withdrawing the descending thoracic aorta all the way up to the arch was evaluated. CONCLUSION: 1. Mildly thickened anterior and posterior mitral leaflets with mild prolapse of the posterior mitral leaflet and moderate MR. The MR was moderate by quantitative measurements with Pisa radius of 0.6 cm 2. Trileaflet aortic valve with no stenosis or regurgitation 3. Moderate mitral regurgitation 4. Normal LV systolic function with EF at 60% 5. Normal right ventricular dimension and systolic function 6. Mildly dilated left atrium 7. Intact left atrial appendage 8. Intact interatrial septum
[2024-10-15] MEDS: LIDOCAINE 1% INJ 10MG/ML (20 ML MDV) SQ ONE (12:05)
[2024-10-15] MEDS: VERAPAMIL SYRINGE (5 MG/10 ML) INTRAARTER ONE (12:07)
[2024-10-15] MEDS: HEPARIN SODIUM 1,000 UN/ML (10ML VL) IVP ONE ×2 (12:11)
[2024-10-15] MEDS: IOPAMIDOL-370 100ML BTL INJ ONE (12:15)
[2024-10-15] MEDS ORDERED: RX INFO: IV CONTRAST WAS GIVEN 1 EACH MISC MISCELLANE PRN (12:17)
[2024-10-15] MEDS: HEPARIN SODIUM,PORCINE 10,000 UNIT in SODIUM CHLORIDE 0.9% 1,000 ML IRRIGATION PRN (12:17)
[2024-10-15] MEDS: HEPARIN SODIUM,PORCINE (1 ML) 2,500 UNIT in SODIUM CHLORIDE 0.9% 250 ML IRRIGATION PRN (12:17)
--- NOTE | 2024-10-15 12:19 | P.PCN ---
Date of Procedure: 10/15/24 Operative Findings: CARDIAC CATHETERIZATION PERFORMING PHYSICIAN: Js Rubin MD, RPVI PROCEDURE PERFORMED: 1. Selective right and left coronary angiogram 2. Left heart catheterization 3. Ultrasound-guided access of the right radial artery INDICATION: Acute non-STEMI COMPLICATION: None APPROACH: Right radial artery LEVEL OF SEDATION: Moderate with a sedation length of 12 minutes PROCEDURE DESCRIPTION: After obtaining an informed consent, the patient was brought to cardiac clinical laboratory medical director. Local anesthesia was performed using lidocaine subcutaneously. The right radial artery was cannulated using Seldinger technique, under ultrasound guidance, the guidewire passed easily, following that we advanced a 5-Turkmen sheath dilator assembly, the wire and dilator were removed and sheath was flushed. Following that, 2 mg of verapamil along with 3000 unit heparin were given. Selective right and left coronary angiogram using a 5-Turkmen JR4 and JL 3.5 catheters. Following that we did left heart catheterization using 5-Turkmen pigtail catheter. The procedure was completed there was no complication. SELECTIVE CORONARY ANGIOGRAM: The right coronary artery: Large-caliber vessel and a dominant vessel and appears to be angiographically normal Left main: Is angiographically normal The left circumflex: Large caliber vessel nondominant vessel with no evidence of high-grade stenosis The left anterior descending artery: Large-caliber vessel also appears to be angiographically normal HEMODYNAMICS: The LVEDP was 15 mmHg with no significant gradient across aortic valve CONCLUSION: 1. Normal coronary angiogram 2. Normal left-sided filling pressure POSTPROCEDURE MANAGEMENT: Medical treatment
[2024-10-15] MEDS: SODIUM CHLORIDE 0.9% 1,000 ML IV SCH (13:21)
[2024-10-15] MEDS: HEPARIN SODIUM,PORCINE 5,000 UNIT/ML 1 ML VIAL SQ SCH (15:17)
[2024-10-15] MEDS: methIMAzole 5 MG TAB PO SCH (15:18)
[2024-10-15] MEDS: METOPROLOL TARTRATE 50 MG TAB PO SCH (20:17)
[2024-10-15 23:24] VITALS: RESP 14
[2024-10-16 08:51] VITALS: BP 146/81; PULSE 96; TEMP 98.2
[2024-10-16 09:23] LABS: Basophils % (A) 0 %; Eosinophils % (A) 0 %; HCT 42.3 % (34.0-46.0); HGB 13.1 gm/dL (11.4-16.0); Lymphocytes # (A) 1.4 k/uL (1.0-4.8); Lymphocytes % (A) 11 %; MCH 26.5 pg (25.0-35.0); MCHC 30.8 g/dL (31.0-37.0); MCV 85.9 fL (80.0-100.0); Mean Platelet Volume 7.6; Monocytes # (A) 0.5 k/uL (0-1.0); Monocytes % (A) 4 %; Neutrophils # (A) 10.1 k/uL (1.3-7.7); Neutrophils % (A) 84 %; Platelet Count 382 k/uL (150-450); RBC 4.93 m/uL (3.80-5.40); RDW 15.4 % (11.5-15.5); WBC 12.1 k/uL (3.8-10.6)
--- NOTE | 2024-10-16 09:33 | P.PN ---
Subjective Progress Note Date: 10/16/24 The patient is a pleasant 39-year-old female patient with a past medical history significant for thyroid disease and obesity and also history of marijuana use presented to the emergency department or was brought to the emergency department for erratic behavior. For some reasons troponin was checked and came to be abnormal and seems to be concerning and for that reason we consulted to see the patient. The EKG showed sinus mechanism with sinus tachycardia and no ischemic ST or T wave abnormalities. No symptoms of chest pain or chest discomfort but the patient somewhat is poor historian. No history of CAD or heart failure or cardiac arrhythmia. She is overweight. She was found to have mildly elevated lactic acid. Her WBC also was slightly elevated. She used marijuana yesterday. No other drugs according to her have been used. The physical examination is remarkable for regular rhythm with a clear breathing sounds bilaterally and no edema was noted in the lower extremities September [id number] The patient was seen and evaluated this morning. She is asymptomatic. The echo still pending. She is stable hemodynamically besides slight tachycardia and with that I am going to increase the dose of beta-sean. The physical examination is remarkable for regular rhythm with a soft systolic murmur and clear breathing sounds bilaterally and no edema was noted October 15, 2024 The patient was seen and evaluated this morning. She is feeling overall better. The pressure remains elevated and consistent with stage II hypertension and she still slightly tachycardic. I am going to increase the dose of beta-sean with metoprolol to tartrate to 50 mg p.o. twice daily. Continue the rest of the current medical regimen. The echo showed normal LV systolic function with severe MR and evidence of mitral valve prolapse. The patient need to undergo a SABINO and heart catheterization which probably can be right and left heart catheterization. The physical examination is remarkable for regular rhythm with a systolic murmur at the right and left upper sternal border and apical area with a clear breathing sounds bilaterally no edema was noted October 16, 2024 The patient was seen and evaluated this morning which she is asymptomatic and hemodynamically stable beside the pressure continues to be consistent with a stage II hypertension. I did start the patient on losartan in addition to beta- sean which she underwent a SABINO yesterday which showed only moderate mitral regurgitation and the heart catheterization showed no evidence of obstructive CAD. The physical examination is remarkable for regular rhythm with a systolic murmur at the apical area and clear breathing sounds bilaterally and no edema was noted in the lower extremities Assessment Elevated troponin with no evidence of obstructive CAD Valvular heart disease with moderate mitral regurgitation Systemic hypertension Multiple comorbid conditions Plan Continue the current medical regimen Add losartan to the current medical regimen Continue the current dose of beta-sean The patient potentially can be discharged home Objective - Vital Signs Vital signs: Vital Signs Temp 98.2 F 10/16/24 08:49 Pulse 96 10/16/24 08:49 Resp 14 10/16/24 08:49 BP 146/81 10/16/24 08:49 Pulse Ox 95 10/16/24 08:49 FiO2 Intake & Output 10/15/24 10/16/24 10/16/24 18:59 06:59 18:59 Intake Total 100 Balance 100 Weight 101 kg Intake: IV 100 Other: Voiding Method Toilet # Voids 1 - Labs CBC & Chem 7: 10/16/24 08:42 10/15/24 06:01 Labs: Abnormal Lab Results - Last 24 Hours (Table) 10/16/24 Range/Units 08:42 WBC 12.1 H (3.8-10.6) k/uL MCHC 30.8 L (31.0-37.0) g/dL Neutrophils # 10.1 H (1.3-7.7) k/uL
[2024-10-16 09:34] LABS: African American GFR (CKD) >90 (>60 ml/min/1.73 sqM); Anion Gap 9 mmol/L; Blood Urea Nitrogen 11 mg/dL (7-17); Calcium 9.3 mg/dL (8.4-10.2); Carbon Dioxide 27 mmol/L (22-30); Chloride 103 mmol/L (98-107); Glucose 89 mg/dL (74-99); Magnesium 2.2 mg/dL (1.6-2.3); Non-African American GFR(CKD) >90 (>60 ml/min/1.73 sqM); Potassium 3.6 mmol/L (3.5-5.1); Sodium 139 mmol/L (137-145)
--- NOTE | 2024-10-16 11:24 | P.DS ---
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 "[place] Cocaine" consumption prior to arrival, resolved #Elevated Osmolar Gap #Elevated troponin, nonischemic # Moderate mitral Regurgitation with Mitral Valve Prolapse of Posterior Valve, Anteriorly Directed Jet #Lactic acidosis, resolved #Hypokalemia, resolved #Leukocytosis, likely secondary to acute stressor without evidence of infection, resolved #Hyperthyroidism Hospital course; 39-year-old female who was brought into the emergency room for erratic behavior. The patient had reportedly taken THC edibles and was acting very aggressively and erratically at all staff. Following this she continued to feel better each day. She underwent a head/cervical spine CT in the emergency department which was unremarkable. EKG was completed in the emergency department which was noted to be unremarkable. Chest x-ray was completed and there are several which was noted to be unremarkable. On arrival she did have elevated troponins, an increased white blood cell count, a lactic acid of 4.3 and her urine toxicology screening was positive for marijuana. Multiple medications were added to her regimen while present during her stay. She underwent a echocardiogram of the heart which showed evidence of severe mitral valve regurgitation. She then underwent a transesophageal echocardiogram which showed mostly moderate mitral valve regurgitation and a cardiac catheterization which revealed normal coronary angiogram and normal left-sided filling pressures. During her stay she was evaluated by psychiatry and cardiology. Encephalopathy resolved. She will follow-up with cardiology and her primary care physician within a week upon discharge from the hospital. She is feeling well today and excited to be discha rged. Physical Exam: General: nontoxic, no distress, appears at stated age Derm: warm, dry, intact Head: atraumatic, normocephalic, symmetric Eyes: EOMI, anicteric sclera Mouth: no lip lesion, mucus membranes moist Cardiovascular: S1 S2 reg, no murmur, rubs, or gallops Lungs: CTA bilateral, no rales, no accessory muscle use Abdominal: soft, non-tender to palpataion, no appreciable organomegaly Extremities: no gross muscle atrophy, no edema, no contractures Neuro: Alert, Oriented, CNII-XII grossly intact, gait normal Psych: well appearing, appropriate affect Dictation was produced using [employer] dictation software. please excuse any grammatical, word or spelling errors. Emir Hayden MD PGY-1 IM A total of 38 minutes of time were spent preparing this complex discharge summary. Patient was discharged on 10/16/2024 at 1254. I have seen and evaluated the patient today. Discussed with the resident and agree with the residents finding and plan as documented in the resident's note. Changes highlighted in blue font. Patient Condition at Discharge: Fair Plan - Discharge Summary New Discharge Prescriptions: New Aspirin 81 mg PO DAILY #30 tab Losartan [Cozaar] 25 mg PO DAILY #30 tab Atorvastatin [Lipitor] 20 mg PO DAILY #30 tablet Metoprolol Tartrate [Lopressor] 50 mg PO BID #60 tab Continue Tirzepatide [Zepbound] 7.5 mg SQ FR methIMAzole 10 mg PO Q48H methIMAzole 5 mg PO DAILY Discharge Medication List Tirzepatide [Zepbound] 7.5 mg SQ FR 10/12/24 [History] methIMAzole 5 mg PO DAILY 10/12/24 [History] methIMAzole 10 mg PO Q48H 10/12/24 [History] Aspirin 81 mg PO DAILY #30 tab 10/16/24 [Rx] Atorvastatin [Lipitor] 20 mg PO DAILY #30 tablet 10/16/24 [Rx] Losartan [Cozaar] 25 mg PO DAILY #30 tab 10/16/24 [Rx] Metoprolol Tartrate [Lopressor] 50 mg PO BID #60 tab 10/16/24 [Rx] Follow up Appointment(s)/Referral(s): Swapna Lemos MD [REFERRING] - 10/24/24 11:20 am Js Rubin MD [STAFF PHYSICIAN] - 1 Week (Cardiology office will call patient with an appointment. ) Patient Instructions/Handouts: Mitral Regurgitation (GEN), Chronic Hypertension (GEN) Discharge/Stand Alone Forms: NA Meetings in [place], [facility], Outpatient Counseling, In Substance Abuse Facilities, Area PCPs Discharge Disposition: HOME SELF-CARE
[2024-10-17] MEDS ORDERED: LOSARTAN 25 MG TAB PO SCH (09:00)
== END 2024-10-16 13:31 | disposition home or self-care (01) | DRG 896 ==
LOC: EC 16:35 → 3SCARD 20:17 → OBSVTOIN 20:17 → 3SCARD 10-13 12:54 → 3NCARDOBS 10-15 09:19 → 3SCARD 10-15 09:19
PROVIDERS: ADMIT Internal Medicine; ATTEND Internal Medicine
PROC: 4A023N7 Measurement of Cardiac Sampling and Pressure, Left Heart, Percutaneous Approach (ICD-10-PCS; 2024-10-15)
PROC: B2111ZZ Fluoroscopy of Multiple Coronary Arteries using Low Osmolar Contrast (ICD-10-PCS; 2024-10-15)
PROC: B24BZZ4 Ultrasonography of Heart with Aorta, Transesophageal (ICD-10-PCS; principal; 2024-10-15 13:30)
DX: F12.159 Cannabis abuse with psychotic disorder, unspecified (principal); G92.8 Other toxic encephalopathy; I21.4 Non-ST elevation (NSTEMI) myocardial infarction; I34.0 Nonrheumatic mitral (valve) insufficiency; E05.90 Thyrotoxicosis, unspecified without thyrotoxic crisis or storm; E66.9 Obesity, unspecified; I11.9 Hypertensive heart disease without heart failure; E87.20 Acidosis, unspecified; I34.1 Nonrheumatic mitral (valve) prolapse; T40.711A Poisoning by cannabis, accidental (unintentional), initial encounter; E87.6 Hypokalemia; D72.828 Other elevated white blood cell count; E07.9 Disorder of thyroid, unspecified; F81.9 Developmental disorder of scholastic skills, unspecified; Z79.85 Long-term (current) use of injectable non-insulin antidiabetic drugs; Z79.82 Long term (current) use of aspirin; Z79.899 Other long term (current) drug therapy
CPT/HCPCS: 36415; 70450; 71045; 71046; 72125; 80048; 80053; 80143; 80178; 80179; 80306; 80307; 80320; 82550; 83605; 83690; 83735; 83880; 83930; 83935; 84100; 84439; 84443; 84484; 84600; 85025; 85610; 85730; 93005; 93306; 93312; 93320; 93325; 93458; 96361; 96365; 96366; 96372; 96375; 99285